=== PATIENT | female | born 1940 ===

== ENCOUNTER → 2019-05-11 | Outpatient (CLI) | payer OTHER ==
[~2019-05-11] MED LIST: LOSA1TAB25 PO; LOSA50TA2 PO; LOVA10TA PO; RANI-448 PO; TRAM-47 PO
== END | disposition home or self-care (01) ==
LOC: PETCFH 08:25
PROVIDERS: ATTEND Nurse Practitioner
DX: R91.8 Other nonspecific abnormal finding of lung field (principal); J45.909 Unspecified asthma, uncomplicated; G47.33 Obstructive sleep apnea (adult) (pediatric)
CPT/HCPCS: 78815; A9552

== ENCOUNTER 2019-06-14 10:42 | Observation (INO) | payer OTHER ==
[~2019-06-14] VITALS: Ht 157.5 cm; Wt 103.6 kg
[~2019-06-14 10:42] MED LIST changes: +HYDROmorphone 1 MG/ML, 1ML INJ IV PRN; +LABETALOL 5MG/ML, 20ML IV PRN; +MEPERIDINE/PF 25MG/0.5ML IVPush PRN; +MIDAZOLAM 1 MG/ML, 2ML IV PRN; +ONDANSETRON 2MG/ML, 2ML IVPush PRN; +OXYcodone 5 MG/5 ML ORAL.SOL UDC PO PRN; +PLEASE ENTER HEIGHT AND WEIGHT MC SCH
[2019-06-14 11:34] VITALS: BP 112/74
[2019-06-14] MEDS ORDERED: FURO20TA3 PO (11:42)
[2019-06-14] MEDS ORDERED: LORA10TA62 PO (11:42)
[2019-06-14] MEDS ORDERED: GABA300C10 PO (11:42)
[2019-06-14] MEDS ORDERED: MOME220A9 INH (11:42)
[2019-06-14] MEDS ORDERED: METF500T17 PO (11:42)
[2019-06-14] MEDS ORDERED: MONT10TA9 PO (11:42)
[2019-06-14] MEDS ORDERED: LACTATED RINGERS 1,000 ML IV SCH (12:05)
[2019-06-14] MEDS ORDERED: PROPOFOL 10 MG/ML, 20ML ONE (14:02)
[2019-06-14] MEDS ORDERED: SUCCINYLCHOLINE 20 MG/ML, 10ML ONE (14:02)
[2019-06-14] MEDS ORDERED: DEXAMETHASONE 4 MG/ML, 1ML ONE (14:02)
[2019-06-14] MEDS ORDERED: EPHEDRINE 50 MG/ML, 1ML ONE (14:02)
[2019-06-14] MEDS ORDERED: FENTANYL PF 100 MCG/2ML ONE ×3 (14:05→17:09)
[2019-06-14] MEDS: FENTANYL PF 100 MCG/2ML IV PRN ×3 (16:25→17:10)
[2019-06-14] MEDS ORDERED: OXYcodone 5 MG/5 ML ORAL.SOL UDC ONE ×2 (16:30→16:48)
[2019-06-14] MEDS ORDERED: HYDROmorphone 2 MG/ML, 1ML ONE (16:49)
[2019-06-14] MEDS ORDERED: hydrALAzine 20 MG/ML, 1ML ONE (17:04)
[2019-06-14] MEDS ORDERED: LABETALOL 5 MG/ML SYR. (IV ONLY) IV PRN (17:30)
[2019-06-14] MEDS ORDERED: ONDANSETRON 2MG/ML, 2ML IVPush PRN (21:00)
[2019-06-14] MEDS ORDERED: MONTELUKAST 10 MG TABLET PO SCH (21:00)
[2019-06-14] MEDS: GABAPENTIN 300 MG CAPSULE PO SCH (22:41)
[2019-06-14] MEDS: OXYcodone 5 MG/5 ML ORAL.SOL UDC PO PRN (22:41)
[2019-06-15 00:02] VITALS: BP 144/82
[2019-06-15] MEDS: BUDESONIDE 0.5 MG/2 ML INHA NPPB SCH ×2 (00:38→06:23)
[2019-06-15] MEDS ORDERED: ALBUTEROL SULFATE 2.5 MG/3 ML NPPB PRN (01:00)
[2019-06-15] MEDS: OXYcodone 5 MG/5 ML ORAL.SOL UDC PO PRN ×2 (03:32→05:23)
[2019-06-15 04:06] VITALS: BP 130/76
[2019-06-15 07:40] VITALS: BP 134/73
[2019-06-15] MEDS ORDERED: metFORMIN 500 MG TABLET PO SCH (08:00)
[2019-06-15] MEDS ORDERED: FUROSEMIDE 40 MG/4 ML IV ONE (08:30)
[2019-06-15] MEDS: GABAPENTIN 300 MG CAPSULE PO SCH (08:57)
[2019-06-15] MEDS ORDERED: LORATADINE 10 MG TABLET PO SCH (09:00)
[2019-06-15] MEDS ORDERED: FUROSEMIDE 40 MG TABLET PO SCH (09:00)
[2019-06-15 12:43] VITALS: BP 132/75
[2019-06-16] MEDS ORDERED: METF500T17 PO (16:43)
[2019-06-16] MEDS ORDERED: AMOX-291 PO (16:43)
[2019-06-16] MEDS ORDERED: LOSA25TA25 PO (16:43)
[2019-06-16] MEDS ORDERED: GABA300C10 PO (16:49)
[2019-06-16] MEDS ORDERED: HYDROQUINONE (16:49)
[2019-06-16] MEDS ORDERED: FORMOTEROL (16:49)
[2019-06-16] MEDS ORDERED: FLUT5POW4 NAS (16:49)
[2019-06-16] MEDS ORDERED: [UNRECOGNIZED DRUG - OTHER] (16:49)
[2019-06-16] MEDS ORDERED: ALBU18HF INH (16:51)
[2019-06-16] MEDS ORDERED: FURO20TA3 PO (16:51)
[2019-06-21] MEDS ORDERED: CEFD300C37 PO (14:17)
[2019-06-21] MEDS ORDERED: AZIT250T89 PO (14:17)
== END 2019-06-15 14:16 | disposition home or self-care (01) ==
LOC: OUT 10:42 → 4NOR 18:08 → OUT 18:20 → DCLOUNGE 06-15 14:13
PROVIDERS: ADMIT Internal Medicine; ATTEND Internal Medicine
DX: R09.02 Hypoxemia (principal); J45.909 Unspecified asthma, uncomplicated; I10 Essential (primary) hypertension; G47.33 Obstructive sleep apnea (adult) (pediatric); E11.9 Type 2 diabetes mellitus without complications; Z79.4 Long term (current) use of insulin
CPT/HCPCS: 31625; 31628; 71045; 82962; 88172; 88173; 88177; 88305; 93005; 94640; 96374; G0378; J0330; J1100; J1170; J1940; J2704; J3010; J7613; J7626

== ENCOUNTER 2019-06-16 13:50 | Inpatient (IN) | payer MEDICARE, OTHER ==
[~2019-06-16] VITALS: Ht 157.5 cm; Wt 101.3 kg
[2019-06-21 12:00] VITALS: BP 173/85
== END 2019-06-21 15:35 | disposition home or self-care (01) | DRG 199 ==
LOC: ED 15:24 → EDIP 18:23 → 3NE 19:33 → DCLOUNGE 06-21 15:29
PROVIDERS: ADMIT Internal Medicine; ATTEND Internal Medicine
DX: J98.2 Interstitial emphysema (principal); J18.1 Lobar pneumonia, unspecified organism; Z68.41 Body mass index [BMI] 40.0-44.9, adult; N17.9 Acute kidney failure, unspecified; G89.29 Other chronic pain; K21.9 Gastro-esophageal reflux disease without esophagitis; G47.33 Obstructive sleep apnea (adult) (pediatric); E78.5 Hyperlipidemia, unspecified; E66.9 Obesity, unspecified; E11.22 Type 2 diabetes mellitus with diabetic chronic kidney disease; E11.21 Type 2 diabetes mellitus with diabetic nephropathy; N18.9 Chronic kidney disease, unspecified; M54.9 Dorsalgia, unspecified; M06.9 Rheumatoid arthritis, unspecified; K44.9 Diaphragmatic hernia without obstruction or gangrene; I12.9 Hypertensive chronic kidney disease with stage 1 through stage 4 chronic kidney disease, or unspecified chronic kidney disease; Z82.49 Family history of ischemic heart disease and other diseases of the circulatory system; Z87.11 Personal history of peptic ulcer disease; Z88.8 Allergy status to other drugs, medicaments and biological substances
CPT/HCPCS: 36415; 84145; 99285; J7613; J7626; 71045; 71250; 80048; 80053; 82550; 83036; 83605; 83880; 84484; 85025; 85651; 86140; 87040; 87070; 87081; 87205; 93005; 94640; 96374; 96376; G0378; J0696; J1644; J2405; J2543; Q0162; J2270; J7030; J7040